=== PATIENT | female | born 1975 | race African-American/Black ===

== ENCOUNTER 2018-04-08 11:55 | Emergency (ER) | payer BC ==
[~2018-04-08] VITALS: Ht 154.9 cm; Wt 127.0 kg
--- OUTSIDE RECORDS SUMMARY | 2018-04-08 11:58 | XMS REPORT ---
Author Author [facility] Address Unknown Phone Unavailable Care Team Providers Care Manager Bar Name Role Phone Unavailable Unavailable Problems This patient has no known problems. Allergies, Adverse Reactions, Alerts This patient has no known allergies or adverse reactions. Medications This patient has no known medications. Encounters Start Date/Time End Date/Time Encounter Type Admission Type Attending [facility] Facility Care Department Encounter ID 2017-10-19 00:00:00 2017-10-19 00:00:00 Outpatient [facility] [id number] 2017-10-05 00:00:00 2017-10-05 00:00:00 Outpatient [facility] [id number] 2017-09-27 00:00:00 2017-09-27 00:00:00 Outpatient [facility] [id number] 2017-09-21 00:00:00 2017-09-21 00:00:00 Outpatient [facility] [id number] 2017-09-17 00:00:00 2017-09-17 00:00:00 Outpatient [facility] [id number] 2017-09-17 00:00:00 2017-09-17 00:00:00 Outpatient [facility] [id number] 2017-09-16 14:28:20 2017-09-16 14:28:20 Outpatient [facility] [id number] 2017-07-16 00:00:00 2017-07-16 00:00:00 Outpatient [facility] [id number] 2017-07-14 00:00:00 2017-07-14 00:00:00 Outpatient [facility] [id number] 2017-07-13 11:30:22 2017-07-13 11:30:22 Outpatient [facility] [id number] 2017-07-13 09:58:39 2017-07-13 09:58:39 Outpatient [facility] [id number] 2017-07-09 00:00:00 2017-07-09 00:00:00 Outpatient [facility] [id number] 2017-07-08 00:00:00 2017-07-08 00:00:00 Outpatient [facility] [id number] 2017-07-06 00:00:00 2017-07-06 00:00:00 Outpatient [facility] [id number] 2017-07-06 00:00:00 2017-07-06 00:00:00 Outpatient [facility] [id number] 2017-07-01 00:00:00 2017-07-01 00:00:00 Outpatient [facility] [id number] 2017-06-15 13:38:56 2017-06-15 13:38:56 Outpatient [facility] [id number] 2017-06-15 00:00:00 2017-06-15 00:00:00 Outpatient [facility] [id number] 2017-06-02 13:52:46 2017-06-02 13:52:46 Outpatient [facility] [id number] 2017-06-02 13:19:19 2017-06-02 13:19:19 Outpatient [facility] [id number] 2017-06-02 10:47:00 2017-06-02 10:47:00 Outpatient [facility] [id number] 2017-05-26 14:03:57 2017-05-26 14:03:57 Outpatient [facility] [id number] 2017-05-17 15:38:19 2017-05-17 15:38:19 Outpatient [facility] [id number] 2017-05-03 00:00:00 2017-05-03 00:00:00 Outpatient [facility] [id number] 2017-04-21 10:52:41 2017-04-21 10:52:41 Outpatient [facility] [id number] 2017-04-14 10:55:52 2017-04-14 10:55:52 Outpatient [facility] [id number] 2017-03-22 13:01:28 2017-03-22 13:01:28 Outpatient [facility] [id number]
[2018-04-08 12:41] LABS: BASOPHILS % 0.4 % (0.0-1.0); EOSINOPHILS # (AUTO) 0.1 (0.0-0.4); EOSINOPHILS % 0.9 % (0.0-6.0); HEMATOCRIT 38.9 % (34.2-44.1); HEMOGLOBIN 13.2 g/dL (12.0-16.0); LYMPHOCYTES # (AUTO) 2.2 (1.0-3.2); LYMPHOCYTES % 38.3 % (18.0-39.1); MEAN CORPUSCULAR HGB CONC 33.9 g/dL (31-35); MEAN CORPUSCULAR VOLUME 82.6 fL (81-99); MONOCYTES # (AUTO) 0.5 (0.2-0.8); MONOCYTES % 8.9 % (4.4-11.3); NEUTROPHILS # (AUTO) 2.9 (2.1-6.9); NEUTROPHILS % 51.3 % (38.7-80.0); PLATELET COUNT 336 x10e3/uL (140-360); RED BLOOD COUNT 4.71 x10e6/uL (3.6-5.1); RED CELL DISTRIBUTION WIDTH 14.7 % (11.7-14.4)
[2018-04-08 12:57] LABS: ALANINE AMINOTRANSFERASE 18 IU/L (0-55); ALBUMIN 3.6 g/dL (3.5-5.0); ALBUMIN/GLOBULIN RATIO 0.8 (0.8-2.0); ALKALINE PHOSPHATASE 55 IU/L (40-150); ANION GAP 10.5 mmol/L (8-16); BLOOD UREA NITROGEN 5 mg/dL (7-26); BUN/CREATININE RATIO 5 (6-25); CALCIUM 9.8 mg/dL (8.4-10.2); CARBON DIOXIDE 28 mmol/L (22-29); CHLORIDE 106 mmol/L (98-107); CREATININE, SERUM 0.91 mg/dL (0.57-1.11); EST GLOMERULAR FILTRATION RATE > 60 ML/MIN (60-); GLUCOSE 84 mg/dL (74-118); POTASSIUM 3.5 mmol/L (3.5-5.1); SODIUM 141 mmol/L (136-145)
[2018-04-08 12:59] LABS: CLARITY,URINE HAZY (CLEAR); COLOR,URINE YELLOW (YELLOW)
[2018-04-08 13:00] LABS: BILIRUBIN,URINE NEGATIVE (NEGATIVE); KETONES,URINE NEGATIVE (NEGATIVE); LEUKOCYTE ESTERASE ,URINE NEGATIVE (NEGATIVE); NITRITE,URINE NEGATIVE (NEGATIVE); PROTEIN,URINE DIPSTICK 2+ (NEGATIVE); URINE UROBILINOGEN 1 mg/dL (0.2 - 1)
[2018-04-08 13:01] LABS: PREGNANCY TEST, URINE NEGATIVE (NEGATIVE)
[2018-04-08 13:04] LABS: BACTERIA,URINE FEW /HPF; EPITHELIAL CELLS,URINE FEW /LPF; RBC,URINE >50 /HPF (0-5); WBC,URINE (MAN) 0-5 /HPF (0-5)
[2018-04-08] MEDS ORDERED: MORPHINE SULFATE 4 MG/ML SYR IV STA (14:07)
[2018-04-08] MEDS ORDERED: ONDANSETRON HCL INJ 2 MG/ML VIAL IV STA (14:07)
[2018-04-08] MEDS ORDERED: SODIUM CHLORIDE 0.9% 1000ML 1,000 ML IV STA (14:07)
[2018-04-08] MEDS ORDERED: HYDROMORPHONE 1MG/1ML INJ IV ONE (14:12)
--- NOTE | 2018-04-08 16:55 | Diagnostic Imaging Report ---
PROCEDURE:US GALLBLADDER COMPARISON:None. INDICATIONS:abd pain TECHNIQUE: Aparicio-scale and color doppler transverse and longitudinal images of the right upper quadrant of the abdomen were obtained. FINDINGS: Liver: 15.7 cm in right mid-clavicular line. Mildly increased echogenicity. No masses. Main portal vein: 1.0 cm Gallbladder: The gallbladder is full of stones. No wall thickening or pericholecystic fluid. Common Bile Duct: 0.4 cm Sonographic Cooper's sign: Negative Right kidney: 10.8 cm. Normal echogenicity. No solid masses or hydronephrosis. Pancreas: The visualized portions are unremarkable. Inferior vena cava: Patent Aorta: Within normal limits Ascites: None in the right upper quadrant of the abdomen. CONCLUSION: The gallbladder is full of stones. No evidence of acute cholecystitis. Dictated by: Ben Mclaughlin M.D. on 04/08/2018 at 16:58 Electronically approved by: Ben Mclaughlin M.D. on 04/08/2018 at 16:58
[2018-04-08 17:31] VITALS: BP 131/79
== END 2018-04-08 17:32 | disposition home or self-care (01) ==
LOC: ER 11:55
DX: R10.13 Epigastric pain (principal); R11.2 Nausea with vomiting, unspecified; K80.10 Calculus of gallbladder with chronic cholecystitis without obstruction
CPT/HCPCS: 36415; 76705; 80053; 81001; 81025; 85025; 93005; 99284; J1170; J2405; J7030